=== PATIENT | female | born 1955 | race Caucasian/White ===

== ENCOUNTER → 2016-10-04 | Outpatient (CLI) | payer OTHER ==
[2016-10-04 10:13] LABS: HEMATOCRIT 45.5 % (37.0-47.0); HEMOGLOBIN 13.9 g/dl (12.5-16.0); MEAN CELL VOLUME 90 fl (80.0-100.0); MEAN CORPUSCULAR HEMOGLOBIN 27 pg (27.0-31.0); MEAN CORPUSCULAR HGB CONC 31 g/dl (33.0-37.0); MEAN PLATELET VOLUME 10.1 fl (7.4-10.4); PLATELET COUNT 284 K/mm3 (130-400); RED BLOOD COUNT 5.07 M/mm3 (4.10-5.30)
[2016-10-04 10:26] LABS: PH 6 (5-8); URINE APPEARANCE Clear; URINE BILIRUBIN Negative (NEGATIVE); URINE BLOOD Negative (NEGATIVE); URINE COLOR Straw; URINE GLUCOSE Negative (NEGATIVE); URINE KETONE Negative (NEGATIVE); URINE UROBILINOGEN Negative (NEGATIVE)
[2016-10-04 10:37] LABS: ADJUSTED CALCIUM 8.7 mg/dL (8.4-10.2); ALBUMIN 4.1 gm/dL (3.5-5.0); BILIRUBIN,TOTAL 0.8 mg/dL (0.0-1.0); CALCIUM 8.8 mg/dL (8.4-10.2); CREATININE, serum 0.57 mg/dL (0.52-1.25); POTASSIUM 3.8 mmol/L (3.4-5.0); TOTAL PROTEIN 7.1 gm/dL (6.4-8.2)
[2016-10-04 10:49] LABS: URINE BACTERIA Rare /hpf; URINE WBC 0-2 /hpf
[2016-10-04 11:54] LABS: THYROID STIMULATING HORMONE 0.575 uIU/mL (0.465-4.680)
[2016-10-04 11:55] LABS: ERYTHROCYTE SEDIMENTATION RATE 1 mm/hr (0-30)
== END ==
LOC: COL.RAD 08:43
DX: M43.16 Spondylolisthesis, lumbar region (principal)

== ENCOUNTER → 2016-10-31 | Outpatient (CLI) | payer OTHER | LOC: COL.RAD 09:44 | DX: M48.06 Spinal stenosis, lumbar region (principal); M47.816 Spondylosis without myelopathy or radiculopathy, lumbar region; M43.16 Spondylolisthesis, lumbar region; M51.36 Other intervertebral disc degeneration, lumbar region ==

== ENCOUNTER 2017-03-12 13:15 | Outpatient (RCR) | payer OTHER | END 2017-03-14 12:48 | LOC: WSPT 13:15 | DX: M54.9 Dorsalgia, unspecified (principal) ==

== ENCOUNTER 2017-12-14 10:28 | Observation (INO) | payer SELFPAY ==
[~2017-12-14] VITALS: Ht 157.5 cm; Wt 89.0 kg
[2017-12-14] MEDS ORDERED: TOPROL XL100 MG PO (11:33)
[2017-12-14] MEDS ORDERED: NORVASC 10MG10 MG PO (11:33)
[2017-12-14] MEDS ORDERED: HCTZ 25MG TAB25 MG PO (11:34)
[2017-12-14 11:36] LABS: HEMOGLOBIN 15.5 g/dl (12.5-16.0); MEAN CELL VOLUME 94 fl (80.0-100.0); MEAN CORPUSCULAR HEMOGLOBIN 31 pg (27.0-31.0); MEAN CORPUSCULAR HGB CONC 33 g/dl (33.0-37.0); MEAN PLATELET VOLUME 9.8 fl (7.4-10.4); PLATELET COUNT 218 K/mm3 (130-400); RED BLOOD COUNT 5.01 M/mm3 (4.10-5.30); REDCELL DISTRIBUTION WIDTH-CV 12.7 % (11.5-14.5)
[2017-12-14 11:52] LABS: BILIRUBIN,TOTAL 1.2 mg/dL (0.0-1.0); C-REACTIVE PROTEIN 8.9 mg/dL (0.0-0.9); CALCIUM 9.1 mg/dL (8.4-10.2); CREATININE, serum 0.61 mg/dL (0.52-1.25); POTASSIUM 3.3 mmol/L (3.4-5.0); TOTAL PROTEIN 7.1 gm/dL (6.4-8.2)
[2017-12-14 12:09] LABS: EOSINOPHIL 1 % (0-4); LYMPHOCYTE 5 % (20.0-51.0); NEUTROPHILS 89 % (42.0-75.2)
[2017-12-14 12:10] LABS: HYPOCHROMIA 1+; PLATELET ESTIMATE NORMAL (NORMAL)
[2017-12-14 13:28] VITALS: BP 154/73; PULSE 88; TEMP 98.4
[2017-12-14 15:51] VITALS: BP 142/69; PULSE 90; TEMP 98.2
[2017-12-14 19:26] VITALS: BP 128/58; PULSE 78; TEMP 98.6
[2017-12-14 23:13] VITALS: BP 133/67; PULSE 75; TEMP 98.2
[2017-12-15 04:29] VITALS: BP 134/67; PULSE 73; TEMP 98.4
[2017-12-15 07:28] LABS: BASO % 0.2 % (0.0-2.0); EOS # 0.1 (0.0-0.7); EOS % 0.9 % (0-4.0); GRAN # 10.3 (1.4-6.5); GRAN % 73.4 % (42.2-75.2); HEMATOCRIT 44.2 % (37.0-47.0); HEMOGLOBIN 14.4 g/dl (12.5-16.0); LYMPH # 2.2 (1.2-3.4); LYMPH % 15.7 % (20.0-51.0); MEAN CELL VOLUME 96 fl (80.0-100.0); MEAN CORPUSCULAR HEMOGLOBIN 31 pg (27.0-31.0); MEAN CORPUSCULAR HGB CONC 33 g/dl (33.0-37.0); MEAN PLATELET VOLUME 10.1 fl (7.4-10.4); MONO # 1.3 (0.1-0.6); MONO % 9.3 % (1.7-9.3); PLATELET COUNT 204 K/mm3 (130-400); RED BLOOD COUNT 4.59 M/mm3 (4.10-5.30); REDCELL DISTRIBUTION WIDTH-CV 12.8 % (11.5-14.5)
[2017-12-15 07:37] LABS: CALCIUM 8.7 mg/dL (8.4-10.2); CREATININE, serum 0.53 mg/dL (0.52-1.25); POTASSIUM 3.9 mmol/L (3.4-5.0)
[2017-12-15 08:02] VITALS: BP 135/70; PULSE 72; TEMP 97.7
[2017-12-15] MEDS ORDERED: OMNICEF 300MG300 MG PO (09:32)
[2017-12-15 11:29] VITALS: BP 121/64; PULSE 68; TEMP 97.8
== END 2017-12-15 12:40 | disposition home or self-care (01) ==
LOC: COL.ER 10:28 → MEDICAL 12:12
PROVIDERS: Emergency Medicine; Family Medicine
DX: L03.115 Cellulitis of right lower limb (principal); I10 Essential (primary) hypertension; E11.9 Type 2 diabetes mellitus without complications; E87.6 Hypokalemia; G89.29 Other chronic pain; M54.9 Dorsalgia, unspecified; Z83.3 Family history of diabetes mellitus; Z88.2 Allergy status to sulfonamides; Z86.718 Personal history of other venous thrombosis and embolism; Z87.891 Personal history of nicotine dependence; Z82.49 Family history of ischemic heart disease and other diseases of the circulatory system
CPT/HCPCS: J0696; J1650; J7030

== ENCOUNTER → 2018-01-17 | Outpatient (CLI) | payer SELFPAY ==
[~2018-01-17] MED LIST: HCTZ 25MG TAB25 MG PO; NORVASC 10MG10 MG PO; OMNICEF 300MG300 MG PO; TOPROL XL100 MG PO
[2018-01-17 10:06] LABS: HEMATOCRIT 47.9 % (37.0-47.0); HEMOGLOBIN 16.2 g/dl (12.5-16.0); MEAN CELL VOLUME 93 fl (80.0-100.0); MEAN CORPUSCULAR HEMOGLOBIN 31 pg (27.0-31.0); MEAN CORPUSCULAR HGB CONC 34 g/dl (33.0-37.0); MEAN PLATELET VOLUME 10.1 fl (7.4-10.4); PLATELET COUNT 250 K/mm3 (130-400); RED BLOOD COUNT 5.17 M/mm3 (4.10-5.30); REDCELL DISTRIBUTION WIDTH-CV 12.6 % (11.5-14.5)
[2018-01-17 10:17] LABS: ALBUMIN 4.2 gm/dL (3.5-5.0); BILIRUBIN,TOTAL 0.7 mg/dL (0.0-1.0); CHOLESTEROL RISK RATIO 5.5; CREATININE, serum 0.54 mg/dL (0.52-1.25); POTASSIUM 3.6 mmol/L (3.4-5.0); TOTAL PROTEIN 7.5 gm/dL (6.4-8.2)
== END ==
LOC: COL.LAB 09:29
PROVIDERS: Pediatrics Adolescent Medicine
DX: I10 Essential (primary) hypertension (principal); M47.9 Spondylosis, unspecified; R73.03 Prediabetes

== ENCOUNTER → 2018-03-03 | Outpatient (CLI) | payer OTHER ==
[2018-03-03 13:11] LABS: CREATININE, serum 0.54 mg/dL (0.52-1.25)
[2018-03-03 13:42] LABS: TSH w REFLEX 0.615 uIU/mL (0.465-4.680)
[2018-03-05 14:26] LABS: SYPHILIS AB IGG Negative (Negative)
== END ==
LOC: COL.LAB 07:15 → COL.RAD 07:15
PROVIDERS: Internal Medicine
DX: I10 Essential (primary) hypertension (principal); G31.84 Mild cognitive impairment of uncertain or unknown etiology; I07.1 Rheumatic tricuspid insufficiency; R01.1 Cardiac murmur, unspecified
CPT/HCPCS: 86780

== ENCOUNTER → 2018-03-10 | Outpatient (CLI) | payer OTHER | LOC: COL.RAD 11:30 | DX: G31.84 Mild cognitive impairment of uncertain or unknown etiology (principal) | CPT/HCPCS: Q9967 ==

== ENCOUNTER → 2018-03-21 | Outpatient (CLI) | payer SELFPAY ==
[2018-03-21 08:29] LABS: CALCIUM 9.3 mg/dL (8.4-10.2); CREATININE, serum 0.64 mg/dL (0.52-1.25); POTASSIUM 3.2 mmol/L (3.4-5.0)
== END ==
LOC: COL.LAB 07:38
PROVIDERS: Internal Medicine
DX: I10 Essential (primary) hypertension (principal)

== ENCOUNTER → 2018-04-22 | Outpatient (CLI) | payer SELFPAY | LOC: SUN.DIA | DX: E11.9 Type 2 diabetes mellitus without complications (principal); I10 Essential (primary) hypertension; E66.9 Obesity, unspecified; F17.210 Nicotine dependence, cigarettes, uncomplicated | CPT/HCPCS: G0108 ==

== ENCOUNTER → 2018-05-21 | Outpatient (CLI) | payer OTHER | LOC: SUN.DIA 10:36 | DX: E11.9 Type 2 diabetes mellitus without complications (principal); I10 Essential (primary) hypertension; E66.9 Obesity, unspecified; F17.210 Nicotine dependence, cigarettes, uncomplicated | CPT/HCPCS: G0108 ==

== ENCOUNTER → 2019-06-02 | Outpatient (CLI) | payer SELFPAY ==
[2019-06-02 10:51] LABS: HEMATOCRIT 48.5 % (37.0-47.0); HEMOGLOBIN 16.3 g/dl (12.5-16.0)
[2019-06-02 10:53] LABS: ALBUMIN 4.3 gm/dL (3.5-5.0); BILIRUBIN,TOTAL 0.8 mg/dL (0.0-1.0); CALCIUM 9.3 mg/dL (8.4-10.2); CHOLESTEROL RISK RATIO 6.6; CREATININE, serum 0.67 (0.52-1.25); POTASSIUM 3.7 mmol/L (3.4-5.0); TOTAL PROTEIN 7.4 gm/dL (6.4-8.2)
== END ==
LOC: COL.LAB 09:57
PROVIDERS: Physician Assistant
DX: I10 Essential (primary) hypertension (principal)

== ENCOUNTER 2020-12-20 15:39 | Outpatient (CLI) | payer MEDICARE ==
[2020-12-20 15:53] VITALS: BP 140/72; PULSE 68; TEMP 98.4
== END 2020-12-20 16:17 | disposition home or self-care (01) ==
LOC: EUO 15:39
DX: M81.0 Age-related osteoporosis without current pathological fracture (principal)
CPT/HCPCS: J0897